=== PATIENT | male | born 1965 | race Caucasian/White ===

== ENCOUNTER 2017-11-20 14:35 | Emergency (ER) | payer OTHER ==
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
[2017-11-20] MEDS ORDERED: levETIRAcetam 1,000 MG in Sodium Chloride 0.9% 100 ML IV ONE (14:46)
[2017-11-20] MEDS ORDERED: Sodium Chloride 0.9% 10 ML Syringe FLUSH PRN (14:48)
[2017-11-20] MEDS ORDERED: Haloperidol Lactate 5 MG/ML SDV IVPUSH ONE (14:48)
[2017-11-20] MEDS ORDERED: Famotidine 20 MG/2 ML SDV IVPUSH ONE (14:48)
[2017-11-20] MEDS ORDERED: Diphtheria,Pertussis(Acell),Tetanus Vaccine 0.5 ML SDV IM ONE (15:00)
[2017-11-20 15:23] LABS: CHLORIDE,CL 101 mmol/L (98-107); SODIUM,NA 140 mmol/L (136-145)
[2017-11-20] MEDS ORDERED: Lactated Ringers 1,000 ML IV ONE (15:33)
== END 2017-11-20 15:45 ==
LOC: EDBD → LL.ED 14:42
DX: G40.409 Other generalized epilepsy and epileptic syndromes, not intractable, without status epilepticus (principal); S09.90XA Unspecified injury of head, initial encounter; S01.01XA Laceration without foreign body of scalp, initial encounter; R79.1 Abnormal coagulation profile; J44.9 Chronic obstructive pulmonary disease, unspecified; R79.89 Other specified abnormal findings of blood chemistry; E87.6 Hypokalemia; D75.89 Other specified diseases of blood and blood-forming organs; W18.39XA Other fall on same level, initial encounter
CPT/HCPCS: 36415; 70450; 71045; 80053; 82550; 82553; 83605; 83735; 83880; 84146; 84443; 84484; 84550; 85025; 85379; 85610; 85730; 93005; 96365; 96375; 99291; G0480; J1630; J1953; J3360; J7050; J7120